=== PATIENT | male | born 1965 | race Caucasian/White ===

== ENCOUNTER → 2018-09-17 | Outpatient (CLI) | payer MEDICARE ==
[2015-02-09 22:47] VITALS: BP 122/71
--- NOTE | 2018-09-17 11:18 | KCIC ---
CHEST PA LATERAL Clinical indications: Bronchitis. Shortness of air. Cough. Past smoker. COMPARISON: July 28, 2013. Findings: No acute lung infiltrate or pleural effusion or pulmonary edema or lung mass or pneumothorax is seen. The heart size, pulmonary vasculature, mediastinum and both oneil are unremarkable. The osseous structures appear intact. Impression: No acute radiographic abnormality is seen. Electronically signed by: Say Peace MD (09/17/2018 11:14 AM) [facility]
== END | disposition home or self-care (01) ==
LOC: KCIC 10:45
PROVIDERS: ATTEND Family Medicine
DX: J40 Bronchitis, not specified as acute or chronic (principal); Z87.891 Personal history of nicotine dependence
CPT/HCPCS: 71046

== ENCOUNTER → 2018-12-09 | Outpatient (CLI) | payer MEDICARE ==
[2015-02-09 22:47] VITALS: BP 122/71
[~2018-12-09] MED LIST: ZOLPIDEM 5 MG TABLET. PO ONE
--- NOTE | 2018-12-15 19:06 | SLEEP ---
DATE OF STUDY: 12/09/2018 ATTENDING PHYSICIAN: Dr. Travon Echevarria. The patient is 53 years old who weighs 208 pounds with a BMI of 33. The patient's [place] score was 14. The patient had a history of sleep apnea in 2011 and needed to requalify for another CPAP. During the night study, the patient spent 433 minutes in bed and slept for 292 minutes with a sleep efficiency of 67%. Sleep latency was 42 minutes with a REM latency of 254 minutes. Overall, sleep architecture showed increased stage 1 and stage 2 sleep, normal N3 sleep and reduced REM sleep. During the initial diagnostic portion of the study, the patient slept for 63 minutes. The patient had 75 hypopneas, 3 obstructive apneas, 16 mixed apneas and no central apneas. The patient's AHI was 90 per hour. Supine or REM sleep was not seen during the diagnostic portion. EKG monitoring revealed normal sinus rhythm. Occasional PACs seen. Average heart rate 102 beats per minute. No arrhythmias seen. The patient's average oxygen saturation during the diagnostic portion was 92% with lowest of 79% and 81% of time, oxygen saturation remained between 80% and 89% PLMs were seen at index of 49 per hour and 10 per hour caused EEG arousals. The patient met the criteria for CPAP initiation. It was started at 5 cm water and titrated up to 18 cm water. At the final pressure, the patient slept for 49 minutes. The patient had supine sleep, but no REM sleep. The patient's AHI was reduced to 0 per hour and oxygen saturation remained above 88%. The patient used a medium size full face mask. IMPRESSION: 1. Severe sleep apnea hypopnea syndrome at an AHI of 90 per hour. 2. Nocturnal hypoxia secondary to obstructive sleep apnea, but resolved with CPAP. 3. Severe periodic limb movements. RECOMMENDATIONS: 1. CPAP at 18 cm water completely eliminated the patient's sleep apnea, should be used on a nightly basis. 2. Follow up in 4-6 weeks to assess compliance with CPAP and to document clinical improvement. 3. Weight loss is strongly advised. 4. Avoid [employer] depressants. 5. Caution regarding driving until symptoms of sleep apnea resolves with the use of CPAP. 6. PLMs can be treated with dopaminergic agonist agents if the patient is clinically symptomatic. The patient should also be further evaluated for symptoms of restless legs during the day. MARTINEZ GONZALEZ MD DR: KAJAL/danica JOB#: [id number] / [id number] TRAVON Amaya MD MTDD
== END | disposition home or self-care (01) ==
LOC: SLPLAB 18:50
PROVIDERS: ATTEND Family Medicine
DX: G47.33 Obstructive sleep apnea (adult) (pediatric) (principal); G47.34 Idiopathic sleep related nonobstructive alveolar hypoventilation; G47.61 Periodic limb movement disorder
CPT/HCPCS: 95810

== ENCOUNTER 2021-05-13 08:57 | Observation (INO) | payer MEDICARE ==
[~2021-05-13] VITALS: Ht 167.6 cm; Wt 93.1 kg
[2021-05-13 10:57] LABS: BASO % 0 % (0-3); EOS % 0 % (0-3); HEMATOCRIT 35.7 % (39.0-53.0); HEMOGLOBIN 12.2 g/dL (13.0-17.5); LYMPH % 6 % (24-48); MEAN CORPUSCULAR HEMOGLOBIN 31 pg (25-35); MEAN CORPUSCULAR HGB CONC 34 g/dL (31-37); MEAN CORPUSCULAR VOLUME 92 fL (79-100); MONO # 1.6 x10^3/uL (0.0-1.1); MONO % 10 % (0-9); NEUT # 13.6 x10^3/uL (1.8-7.7); NEUT % 84 % (31-73); PLATELET COUNT 297 x10^3/uL (140-400); RED BLOOD COUNT 3.89 x10^6/uL (4.30-5.70); RED CELL DISTRIBUTION WIDTH 13.1 % (11.5-14.5); WHITE BLOOD COUNT 16.3 x10^3/uL (4.0-11.0)
[2021-05-13] MEDS ORDERED: IV NORMAL SALINE 1000ML BAG 1,000 ML IV ONE (11:00)
[2021-05-13 11:08] LABS: CALCIUM 8.8 mg/dL (8.5-10.1); CREATININE 1.5 mg/dL (0.7-1.3); GFR 48.6; POTASSIUM 4.1 mmol/L (3.5-5.1)
--- NOTE | 2021-05-13 11:08 | RAD ---
XR CHEST 1V History: Weakness Comparison: 09/17/2018 Technique: Portable AP radiograph of the chest. Findings: Lungs are adequately and symmetrically inflated. Eventration of the diaphragm bilaterally. No focal a irspace consolidation, pleural effusion or pneumothorax. The cardiomediastinal silhouette and pulmona ry vasculature are within normal limits. Osseous structures and soft tissues are unremarkable. Impression: 1. No acute cardiopulmonary process. Electronically signed by: Kamar Coulter MD (05/13/2021 11:05 AM) [id number]
[2021-05-13 11:13] LABS: ALBUMIN 2.6 g/dL (3.4-5.0); ALBUMIN/GLOBULIN RATIO 0.6 (1.0-1.7); MAGNESIUM 2.7 mg/dL (1.8-2.4); TOTAL BILIRUBIN 0.3 mg/dL (0.2-1.0); TOTAL PROTEIN 7.3 g/dL (6.4-8.2)
[2021-05-13 11:28] LABS: % BANDS 5 % (0-9); % LYMPHS 12 % (24-48); % MONOS 8 % (0-10); % SEGS 75 % (35-66); PLT ESTIMATE ADEQUATE (ADEQUATE)
[2021-05-13 11:53] LABS: BILIRUBIN,URINE SMALL (NEG); CLARITY,URINE CLEAR; COLOR,URINE YELLOW; NITRITE,URINE NEGATIVE (NEG); PH,URINE 5.5 (<5.0-8.0); PROTEIN,URINE 100 mg/dL (NEG-TRACE)
[2021-05-13 12:02] LABS: BARBITURATES NEG (NEG); BENZODIAZEPINES NEG (NEG); CANNABINOIDS POS (NEG); COCAINE NEG (NEG); METHADONE NEG (NEG); OPIATES POS (NEG); PHENCYCLIDINE NEG (NEG)
[2021-05-13 12:04] LABS: AMPHETAMINE/METHAMPHETAMINE NEG (NEG)
[2021-05-13 12:10] LABS: HYALINE CASTS, URINE MANY /HPF
[2021-05-13 12:11] LABS: GRANULAR CASTS,URINE FEW /HPF
[2021-05-13 12:12] LABS: BACTERIA,URINE FEW /HPF (0-FEW); RBC,URINE 0 /HPF (0-2); WBC,URINE OCC /HPF (0-4)
--- NOTE | 2021-05-13 12:34 | PHYS DOC ---
Past Medical History Past Medical History: Diabetes-Type II, High Cholesterol, Hypertension, Hyperthyroid Past Surgical History: Appendectomy, Other Additional Past Surgical Histo: bilateral eye repair,L ARM SURG Smoking Status: Never Smoker Alcohol Use: None Drug Use: Marijuana General Adult EDM: Chief Complaint: WEAKNESS/GENERALIZED HPI: HPI: Patient is a 55 year old male with history of diabetes type 2, hypertension, high cholesterol, who presents today complaining of generalized weakness and hyperglycemia. Patient states for the last couple months he has not been taking good care of himself. He states he has not been following his diabetic diet. He states he has not been taking his medicines as well. He for the last 4 days has been feeling weak. He states he got back on insulin after his friend who has diabetes told him he needs to be on insulin. He states he used to be on Metformin which he was not taking. He states his blood glucose at home has been running between 300 and 350. Review of Systems: Review of Systems: Constitutional: Reports generalized weakness. Denies fever or chills. [] Eyes: Denies change in visual acuity. [] HENT: Denies nasal congestion or sore throat. [] Respiratory: Denies cough or shortness of breath. [] Cardiovascular: Denies chest pain or edema. [] GI: Denies abdominal pain, nausea, vomiting, bloody stools or diarrhea. [] : Denies dysuria. [] Musculoskeletal: Denies back pain or joint pain. [] Integument: Denies rash. [] Neurologic: Denies headache, focal weakness or sensory changes. [] Endocrine: Reports hypoglycemia Psychiatric: Denies depression or anxiety. [] Heart Score: C/O Chest Pain: N/A Risk Factors: Risk Factors: DM, Current or recent (<one month) smoker, HTN, HLP, family history of CAD, obesity. Risk Scores: Score 0 - 3: 2.5% MACE over next 6 weeks - Discharge Home Score 4 - 6: 20.3% MACE over next 6 weeks - Admit for Clinical Observation Score 7 - 10: 72.7% MACE over next 6 weeks - Early Invasive Strategies Current Medications: Current Medications Medications (Trade) Dose Ordered Sig/Elliott Start Time Stop Time Status Last Admin Dose Admin Sodium Chloride 1,000 ml @ 1,000 mls/hr 1X ONCE 05/13/21 11:00 05/13/21 11:59 DC 05/13/21 11:39 1,000 MLS/HR Allergies: Allergies: Allergies Coded Allergies Type Severity Reaction Last Updated Verified No Known Drug Allergies 02/09/15 No Physical Exam: PE: Constitutional: Well developed, well nourished, no acute distress, non-toxic appearance. [] HENT: Normocephalic, atraumatic, bilateral external ears normal, oropharynx moist, no oral exudates, nose normal. [] Eyes: PERRLA, EOMI, conjunctiva normal, no discharge. [] Neck: Normal range of motion, no tenderness, supple, no stridor. [] Cardiovascular:Heart rate regular rhythm, no murmur [] Lungs & Thorax: Bilateral breath sounds clear to auscultation [] Abdomen: Bowel sounds normal, soft, no tenderness, no masses, no pulsatile masses. [] Skin: Warm, dry, no erythema, no rash. [] Back: No tenderness, no CVA tenderness. [] Extremities: No tenderness, no cyanosis, no clubbing, ROM intact, no edema. [] Neurologic: Alert and oriented X 3, normal motor function, normal sensory function, no focal deficits noted. [] Psychologic: Affect normal, judgement normal, mood normal. [] Current Patient Data: Labs: Laboratory Tests Test 05/13/21 10:07 05/13/21 10:17 05/13/21 11:25 Glucose (Fingerstick) 277 mg/dL (70-99) H White Blood Count 16.3 x10^3/uL (4.0-11.0) H Red Blood Count 3.89 x10^6/uL (4.30-5.70) L Hemoglobin 12.2 g/dL (13.0-17.5) L Hematocrit 35.7 % (39.0-53.0) L Mean Corpuscular Volume 92 fL (79-100) Mean Corpuscular Hemoglobin 31 pg (25-35) Mean Corpuscular Hemoglobin Concent 34 g/dL (31-37) Red Cell Distribution Width 13.1 % (11.5-14.5) Platelet Count 297 x10^3/uL (140-400) Neutrophils (%) (Auto) 84 % (31-73) H Lymphocytes (%) (Auto) 6 % (24-48) L Monocytes (%) (Auto) 10 % (0-9) H Eosinophils (%) (Auto) 0 % (0-3) Basophils (%) (Auto) 0 % (0-3) Neutrophils # (Auto) 13.6 x10^3/uL (1.8-7.7) H Lymphocytes # (Auto) 1.0 x10^3/uL (1.0-4.8) Monocytes # (Auto) 1.6 x10^3/uL (0.0-1.1) H Eosinophils # (Auto) 0.0 x10^3/uL (0.0-0.7) Basophils # (Auto) 0.0 x10^3/uL (0.0-0.2) Segmented Neutrophils % 75 % (35-66) H Band Neutrophils % 5 % (0-9) Lymphocytes % 12 % (24-48) L Monocytes % 8 % (0-10) Platelet Estimate Adequate (ADEQUATE) Sodium Level 129 mmol/L (136-145) L Potassium Level 4.1 mmol/L (3.5-5.1) Chloride Level 91 mmol/L (98-107) L Carbon Dioxide Level 24 mmol/L (21-32) Anion Gap 14 (6-14) Blood Urea Nitrogen 44 mg/dL (8-26) H Creatinine 1.5 mg/dL (0.7-1.3) H Estimated GFR (Cockcroft-Gault) 48.6 BUN/Creatinine Ratio 29 (6-20) H Glucose Level 277 mg/dL (70-99) H Calcium Level 8.8 mg/dL (8.5-10.1) Magnesium Level 2.7 mg/dL (1.8-2.4) H Total Bilirubin 0.3 mg/dL (0.2-1.0) Aspartate Amino Transferase (AST) 19 U/L (15-37) Alanine Aminotransferase (ALT) 19 U/L (16-63) Alkaline Phosphatase 122 U/L (46-116) H Troponin I Quantitative < 0.017 ng/mL (0.000-0.055) HK-Vqq-C-Type Natriuretic Peptide 182 pg/mL (0-124) H Total Protein 7.3 g/dL (6.4-8.2) Albumin 2.6 g/dL (3.4-5.0) L Albumin/Globulin Ratio 0.6 (1.0-1.7) L Urine Collection Type Unknown Urine Color Yellow Urine Clarity Clear Urine pH 5.5 (<5.0-8.0) Urine Specific [place] 1.020 (1.000-1.030) Urine Protein 100 mg/dL (NEG-TRACE) Urine Glucose (UA) 250 mg/dL (NEG) Urine Ketones (Stick) 15 mg/dL (NEG) Urine Blood Negative (NEG) Urine Nitrite Negative (NEG) Urine Bilirubin Small (NEG) Urine Urobilinogen Dipstick 1.0 mg/dL (0.2 mg/dL) Urine Leukocyte Esterase Negative (NEG) Urine RBC 0 /HPF (0-2) Urine WBC Occ /HPF (0-4) Urine Bacteria Few /HPF (0-FEW) Urine Hyaline Casts Many /HPF Urine Granular Casts Few /HPF Urine Mucus Mod /LPF Urine Opiates Screen Pos (NEG) Urine Methadone Screen Neg (NEG) Urine Barbiturates Neg (NEG) Urine Phencyclidine Screen Neg (NEG) Urine Amphetamine/Methamphetamine Neg (NEG) Urine Benzodiazepines Screen Neg (NEG) Urine Cocaine Screen Neg (NEG) Urine Cannabinoids Screen Pos (NEG) Urine Ethyl Alcohol Neg (NEG) Laboratory Tests 05/13/21 10:17 Laboratory Tests 05/13/21 10:17 Vital Signs: Vital Signs Date Time Temp Pulse Resp B/P (MAP) Pulse Ox O2 Delivery O2 Flow Rate FiO2 05/13/21 11:18 92 18 164/93 (116) 97 Room Air 05/13/21 10:00 98.7 98.7 EKG: EK interpreted by Dr. Sanchez sinus rhythm heart rate 99 no STEMI [] Radiology/Procedures: Radiology/Procedures: []PROCEDURE: PORTABLE CHEST 1V XR CHEST 1V History: Weakness Comparison: 09/17/2018 Technique: Portable AP radiograph of the chest. Findings: Lungs are adequately and symmetrically inflated. Eventration of the diaphragm bilaterally. No focal airspace consolidation, pleural effusion or pneumothorax. The cardiomediastinal silhouette and pulmonary vasculature are within normal limits. Osseous structures and soft tissues are unremarkable. Impression: 1. No acute cardiopulmonary process. Electronically signed by: Kamar Burgos MD (05/13/2021 11:05 AM) [id number] DICTATED and SIGNED BY: KAMAR BURGOS MD DATE: 05/13/21 [id number] Course & Med Decision Making: Course & Med Decision Making Pertinent Labs and Imaging studies reviewed. (See chart for details) This is a 55-year-old male patient with history of diabetes type 2 presented today complaining of hyperglycemia and generalized weakness. See HPI. CBC with a WBC of 16.3, hemoglobin 12.2 with hematocrit of 35.7. Creatinine 1.5 with BUN of 44. Glucose 277, sodium 129 corrected for glucose to 133. IV fluids started. Insulin ordered. Spoke with Dr. Sims who accepted patient for admission Dragon Disclaimer: Jareth Disclaimer: This electronic medical record was generated, in whole or in part, using a voice recognition dictation system. Departure Departure Impression: Primary Impression: Hyperglycemia Additional Impressions: Generalized weakness Acute renal failure Qualified Codes: N17.9 - Acute kidney failure, unspecified Disposition: ADMITTED INPATIENT Condition: STABLE Referrals: GALILEO CHENG (PCP) BELLE DUQUE APPLICATION DEVELOPMENT LIAISON May 13, 2021 12:34
--- NOTE | 2021-05-13 13:28 | PDOC1 ---
History and Physical Date of Admission Date of Admission DATE: 05/13/21 TIME: 13:16 Identification/Chief Complaint Chief Complaint Weakness, dehydration Source Source: Chart review, Patient History of Present Illness History of Present Illness Patient is a 55-year-old male with past medical history DM2, HTN, history of MRSA, who presents to the ED with complaints of weakness of the past 4 to 5 days. In the ED he had difficulty ambulating requiring wheelchair. 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 He has been using his friend's insulin in the interim. He also admits that he has not been taking good care of himself and his blood sugars have been significantly elevated at home. Labs on admission showed WBC 16.3, sodium 129, creatinine 1.5, hemoglobin 12.2, hematocrit 35.7, CBG 277, albumin 2.6. UDS is also positive for opiates and cannabis. In the ED he was given 1 L of fluids. Will admit for further medical management. Past Medical History Past Medical History DM2, HTN, history MRSA Past Surgical History Past Surgical History Appendectomy Family History Family History: Hypertension Social History Smoke: No ALCOHOL: none Drugs: Marijuana Current Problem List Problem List Problems Medical Problems: (1) Acute renal failure Status: Acute (2) Generalized weakness Status: Acute (3) Hyperglycemia Status: Acute Current Medications Current Medications Current Medications Sodium Chloride 1,000 ml @ 1,000 mls/hr 1X ONCE IV Last administered on 05/13/21at 11:39; Start 05/13/21 at 11:00; Stop 05/13/21 at 11:59; Status DC Allergies Allergies: Coded Allergies: No Known Drug Allergies (Unverified , 02/09/15) ROS Review of System GENERAL: Weakness. Denies history of weight change or fever. SKIN: No bruising, hair changes or rashes. EYES: No blurred, double or loss of vision. NOSE AND THROAT: No history of nosebleeds, hoarseness or sore throat. HEART: Denies chest pain, denies palpitations. LUNGS: Denies cough, hemoptysis, wheezing or shortness of breath. GASTROINTESTINAL: Denies nausea, vomiting, abdominal pain. GENITOURINARY: Denies dysuria, frequency, urgency, hematuria. NEUROLOGIC: Denies history of numbness, tingling, tremor or weakness. PSYCHIATRIC: Denies anxiety, denies depression. ENDOCRINE: No history of heat or cold intolerance, polyuria or polydipsia. EXTREMITIES: Denies muscle weakness, joint pain, pain on walking or stiffness. Physical Exam Physical Exam General: Alert, Oriented X3, Cooperative, No acute distress HEENT: PERRLA, EOMI Lungs: Clear to auscultation, Normal air movement Heart: RRR, no murmurs Cardiovascular: S1, S2 Abdomen: Normal bowel sounds, Soft, No tenderness Extremities: No clubbing, No cyanosis Skin: No rashes, No significant lesion. Well-healed postsurgical scar to left arm. Neuro: Normal speech, Normal tone, Sensation intact Psych/Mental Status: Mental status NL, Mood NL Vitals Vitals Vital Signs Date Time Temp Pulse Resp B/P (MAP) Pulse Ox O2 Delivery O2 Flow Rate FiO2 05/13/21 11:18 92 18 164/93 (116) 97 Room Air 05/13/21 10:00 98.7 98.7 Labs Labs Laboratory Tests Test 05/13/21 10:07 05/13/21 10:17 05/13/21 11:25 Glucose (Fingerstick) 277 mg/dL (70-99) White Blood Count 16.3 x10^3/uL (4.0-11.0) Red Blood Count 3.89 x10^6/uL (4.30-5.70) Hemoglobin 12.2 g/dL (13.0-17.5) Hematocrit 35.7 % (39.0-53.0) Mean Corpuscular Volume 92 fL (79-100) Mean Corpuscular Hemoglobin 31 pg (25-35) Mean Corpuscular Hemoglobin Concent 34 g/dL (31-37) Red Cell Distribution Width 13.1 % (11.5-14.5) Platelet Count 297 x10^3/uL (140-400) Neutrophils (%) (Auto) 84 % (31-73) Lymphocytes (%) (Auto) 6 % (24-48) Monocytes (%) (Auto) 10 % (0-9) Eosinophils (%) (Auto) 0 % (0-3) Basophils (%) (Auto) 0 % (0-3) Neutrophils # (Auto) 13.6 x10^3/uL (1.8-7.7) Lymphocytes # (Auto) 1.0 x10^3/uL (1.0-4.8) Monocytes # (Auto) 1.6 x10^3/uL (0.0-1.1) Eosinophils # (Auto) 0.0 x10^3/uL (0.0-0.7) Basophils # (Auto) 0.0 x10^3/uL (0.0-0.2) Segmented Neutrophils % 75 % (35-66) Band Neutrophils % 5 % (0-9) Lymphocytes % 12 % (24-48) Monocytes % 8 % (0-10) Platelet Estimate Adequate (ADEQUATE) Sodium Level 129 mmol/L (136-145) Potassium Level 4.1 mmol/L (3.5-5.1) Chloride Level 91 mmol/L (98-107) Carbon Dioxide Level 24 mmol/L (21-32) Anion Gap 14 (6-14) Blood Urea Nitrogen 44 mg/dL (8-26) Creatinine 1.5 mg/dL (0.7-1.3) Estimated GFR (Cockcroft-Gault) 48.6 BUN/Creatinine Ratio 29 (6-20) Glucose Level 277 mg/dL (70-99) Calcium Level 8.8 mg/dL (8.5-10.1) Magnesium Level 2.7 mg/dL (1.8-2.4) Total Bilirubin 0.3 mg/dL (0.2-1.0) Aspartate Amino Transf (AST/SGOT) 19 U/L (15-37) Alanine Aminotransferase (ALT/SGPT) 19 U/L (16-63) Alkaline Phosphatase 122 U/L (46-116) Troponin I Quantitative < 0.017 ng/mL (0.000-0.055) EI-Lox-U-Type Natriuretic Peptide 182 pg/mL (0-124) Total Protein 7.3 g/dL (6.4-8.2) Albumin 2.6 g/dL (3.4-5.0) Albumin/Globulin Ratio 0.6 (1.0-1.7) Urine Collection Type Unknown Urine Color Yellow Urine Clarity Clear Urine pH 5.5 (<5.0-8.0) Urine Specific [place] 1.020 (1.000-1.030) Urine Protein 100 mg/dL (NEG-TRACE) Urine Glucose (UA) 250 mg/dL (NEG) Urine Ketones (Stick) 15 mg/dL (NEG) Urine Blood Negative (NEG) Urine Nitrite Negative (NEG) Urine Bilirubin Small (NEG) Urine Urobilinogen Dipstick 1.0 mg/dL (0.2 mg/dL) Urine Leukocyte Esterase Negative (NEG) Urine RBC 0 /HPF (0-2) Urine WBC Occ /HPF (0-4) Urine Bacteria Few /HPF (0-FEW) Urine Hyaline Casts Many /HPF Urine Granular Casts Few /HPF Urine Mucus Mod /LPF Urine Opiates Screen Pos (NEG) Urine Methadone Screen Neg (NEG) Urine Barbiturates Neg (NEG) Urine Phencyclidine Screen Neg (NEG) Urine Amphetamine/Methamphetamine Neg (NEG) Urine Benzodiazepines Screen Neg (NEG) Urine Cocaine Screen Neg (NEG) Urine Cannabinoids Screen Pos (NEG) Urine Ethyl Alcohol Neg (NEG) Laboratory Tests Test 05/13/21 10:07 05/13/21 10:17 05/13/21 11:25 Glucose (Fingerstick) 277 mg/dL (70-99) White Blood Count 16.3 x10^3/uL (4.0-11.0) Red Blood Count 3.89 x10^6/uL (4.30-5.70) Hemoglobin 12.2 g/dL (13.0-17.5) Hematocrit 35.7 % (39.0-53.0) Mean Corpuscular Volume 92 fL (79-100) Mean Corpuscular Hemoglobin 31 pg (25-35) Mean Corpuscular Hemoglobin Concent 34 g/dL (31-37) Red Cell Distribution Width 13.1 % (11.5-14.5) Platelet Count 297 x10^3/uL (140-400) Neutrophils (%) (Auto) 84 % (31-73) Lymphocytes (%) (Auto) 6 % (24-48) Monocytes (%) (Auto) 10 % (0-9) Eosinophils (%) (Auto) 0 % (0-3) Basophils (%) (Auto) 0 % (0-3) Neutrophils # (Auto) 13.6 x10^3/uL (1.8-7.7) Lymphocytes # (Auto) 1.0 x10^3/uL (1.0-4.8) Monocytes # (Auto) 1.6 x10^3/uL (0.0-1.1) Eosinophils # (Auto) 0.0 x10^3/uL (0.0-0.7) Basophils # (Auto) 0.0 x10^3/uL (0.0-0.2) Segmented Neutrophils % 75 % (35-66) Band Neutrophils % 5 % (0-9) Lymphocytes % 12 % (24-48) Monocytes % 8 % (0-10) Platelet Estimate Adequate (ADEQUATE) Sodium Level 129 mmol/L (136-145) Potassium Level 4.1 mmol/L (3.5-5.1) Chloride Level 91 mmol/L (98-107) Carbon Dioxide Level 24 mmol/L (21-32) Anion Gap 14 (6-14) Blood Urea Nitrogen 44 mg/dL (8-26) Creatinine 1.5 mg/dL (0.7-1.3) Estimated GFR (Cockcroft-Gault) 48.6 BUN/Creatinine Ratio 29 (6-20) Glucose Level 277 mg/dL (70-99) Calcium Level 8.8 mg/dL (8.5-10.1) Magnesium Level 2.7 mg/dL (1.8-2.4) Total Bilirubin 0.3 mg/dL (0.2-1.0) Aspartate Amino Transf (AST/SGOT) 19 U/L (15-37) Alanine Aminotransferase (ALT/SGPT) 19 U/L (16-63) Alkaline Phosphatase 122 U/L (46-116) Troponin I Quantitative < 0.017 ng/mL (0.000-0.055) AL-Bzd-J-Type Natriuretic Peptide 182 pg/mL (0-124) Total Protein 7.3 g/dL (6.4-8.2) Albumin 2.6 g/dL (3.4-5.0) Albumin/Globulin Ratio 0.6 (1.0-1.7) Urine Collection Type Unknown Urine Color Yellow Urine Clarity Clear Urine pH 5.5 (<5.0-8.0) Urine Specific [place] 1.020 (1.000-1.030) Urine Protein 100 mg/dL (NEG-TRACE) Urine Glucose (UA) 250 mg/dL (NEG) Urine Ketones (Stick) 15 mg/dL (NEG) Urine Blood Negative (NEG) Urine Nitrite Negative (NEG) Urine Bilirubin Small (NEG) Urine Urobilinogen Dipstick 1.0 mg/dL (0.2 mg/dL) Urine Leukocyte Esterase Negative (NEG) Urine RBC 0 /HPF (0-2) Urine WBC Occ /HPF (0-4) Urine Bacteria Few /HPF (0-FEW) Urine Hyaline Casts Many /HPF Urine Granular Casts Few /HPF Urine Mucus Mod /LPF Urine Opiates Screen Pos (NEG) Urine Methadone Screen Neg (NEG) Urine Barbiturates Neg (NEG) Urine Phencyclidine Screen Neg (NEG) Urine Amphetamine/Methamphetamine Neg (NEG) Urine Benzodiazepines Screen Neg (NEG) Urine Cocaine Screen Neg (NEG) Urine Cannabinoids Screen Pos (NEG) Urine Ethyl Alcohol Neg (NEG) Images Images PATIENT: LOGAN PEREZ EACCOUNT: [id number] : 1965 LOCATION: ER AGE: 55 SEX: M EXAM STATUS: PRE ER ORD. PHYSICIAN: BELLE DUQUE APRN REASON: weakness PROCEDURE: PORTABLE CHEST 1V XR CHEST 1V History: Weakness Comparison: 09/17/2018 Technique: Portable AP radiograph of the chest. Findings: Lungs are adequately and symmetrically inflated. Eventration of the diaphragm bilaterally. No focal airspace consolidation, pleural effusion or pneumothorax. The cardiomediastinal silhouette and pulmonary vasculature are within normal limits. Osseous structures and soft tissues are unremarkable. Impression: 1. No acute cardiopulmonary process. 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 Resume home medications FEN - ADA diet PPX - Lovenox FULL CODE Dispo - inpatient for above Patient names his sister (Ninfa Coulter) as surrogate decision-maker Justifications for Admission Other Justification TRISTA RAMACHANDRAN MD May 13, 2021 13:28
[2021-05-13] MEDS ORDERED: IV DEXTROSE 5% 250 ML BAG. IV PRN (13:30)
[2021-05-13] MEDS ORDERED: DEXTROSE 50% 25 GM / 50ML DISP.SYRIN. IV PRN (13:30)
[2021-05-13] MEDS ORDERED: IV NORMAL SALINE 1000ML BAG 1,000 ML IV PRN (13:30)
[2021-05-13] MEDS ORDERED: ONDANSETRON PF 4 MG/2 ML VIAL. IVP PRN (14:00)
[2021-05-13] MEDS ORDERED: MAG HYDROX/ALUMINUM HYD/SIMETH 30 ML ORAL.SUSP PO PRN (14:00)
[2021-05-13] MEDS ORDERED: HYDROcodone/APAP 5/325MG 1 TAB TABLET PO PRN (14:00)
[2021-05-13] MEDS ORDERED: ZOLPIDEM 5 MG TABLET. PO PRN (14:00)
[2021-05-13] MEDS ORDERED: ACETAMINOPHEN 325 MG TABLET. PO PRN (14:00)
[2021-05-13] MEDS ORDERED: MAGNESIUM HYDROXIDE 2,400 MG/30 ML ORAL.SUSP. PO PRN (14:00)
[2021-05-13] MEDS ORDERED: CALCIUM CARBONATE 500 MG TAB.CHEW PO PRN (14:00)
[2021-05-13] MEDS ORDERED: ENOXAPARIN 40 MG/0.4 ML SYRINGE. SQ SCH (16:00)
[2021-05-13] MEDS: INSULIN LISPRO 300 UNITS/3 ML VIAL. SQ SCH (19:43)
[2021-05-13 20:33] VITALS: BP 168/90
[2021-05-13] MEDS ORDERED: INSULIN GLARGINE SYRINGE. SQ SCH (21:00)
[2021-05-13] MEDS ORDERED: HYDROcodone/APAP 10/325 1 TAB TABLET PO PRN (23:00)
[2021-05-13] MEDS ORDERED: LISI20TA18 PO (23:09)
[2021-05-13] MEDS ORDERED: ESCI10TA90 PO (23:09)
[2021-05-13] MEDS ORDERED: QUET100T2 PO (23:09)
[2021-05-13] MEDS ORDERED: GABA-585 PO (23:09)
[2021-05-13] MEDS ORDERED: CARV25TA2 PO (23:09)
[2021-05-13] MEDS ORDERED: METF10007 PO (23:09)
[2021-05-13] MEDS ORDERED: HYDR-2769 PO (23:09)
[2021-05-13] MEDS ORDERED: PIOG45TA40 PO (23:09)
[2021-05-13] MEDS ORDERED: QUEtiapine 100 MG TABLET. PO SCH (23:30)
[2021-05-13] MEDS: CARVEDILOL 12.5 MG TABLET. PO SCH (23:37)
[2021-05-13] MEDS: LISINOPRIL 20 MG TABLET PO SCH (23:38)
[2021-05-13] MEDS: CITALOPRAM 20 MG TABLET. PO SCH (23:38)
[2021-05-13 23:59] VITALS: BP 123/80
--- NOTE | 2021-05-14 03:49 | EKG ---
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
[2021-05-14 03:57] VITALS: BP 126/84
[2021-05-14 06:00] LABS: BASO % 0 % (0-3); EOS # 0.1 x10^3/uL (0.0-0.7); EOS % 1 % (0-3); HEMATOCRIT 32.9 % (39.0-53.0); HEMOGLOBIN 11.2 g/dL (13.0-17.5); LYMPH # 1.1 x10^3/uL (1.0-4.8); LYMPH % 11 % (24-48); MEAN CORPUSCULAR HEMOGLOBIN 31 pg (25-35); MEAN CORPUSCULAR HGB CONC 34 g/dL (31-37); MEAN CORPUSCULAR VOLUME 92 fL (79-100); MONO # 1.2 x10^3/uL (0.0-1.1); MONO % 11 % (0-9); NEUT # 8.1 x10^3/uL (1.8-7.7); NEUT % 77 % (31-73); PLATELET COUNT 273 x10^3/uL (140-400); RED BLOOD COUNT 3.58 x10^6/uL (4.30-5.70); RED CELL DISTRIBUTION WIDTH 13.2 % (11.5-14.5); WHITE BLOOD COUNT 10.5 x10^3/uL (4.0-11.0)
[2021-05-14 06:05] LABS: CALCIUM 8.1 mg/dL (8.5-10.1); CREATININE 1.3 mg/dL (0.7-1.3); GFR 57.3; POTASSIUM 3.6 mmol/L (3.5-5.1)
[2021-05-14 07:45] VITALS: BP 137/85
[2021-05-14] MEDS: CITALOPRAM 20 MG TABLET. PO SCH (08:26)
[2021-05-14] MEDS: LISINOPRIL 20 MG TABLET PO SCH (08:27)
[2021-05-14] MEDS: CARVEDILOL 12.5 MG TABLET. PO SCH (08:28)
[2021-05-14] MEDS: INSULIN LISPRO 300 UNITS/3 ML VIAL. SQ SCH ×2 (08:35→11:54)
[2021-05-14 10:57] VITALS: BP 147/87
[2021-05-14] MEDS ORDERED: INSU100V8 SQ (13:29)
--- NOTE | 2021-05-14 13:52 | PDOC ---
[facility] [facility] PROGRESS NOTE Date of Service DOS: DATE: 05/14/21 TIME: 13:47 Chief Complaint Chief Complaint Hyperglycemia Dehydration History of Present Illness History of Present Illness 05/14/2021 Pt seen and examined Pt was cooperative and in NAD Pt seemed comfortable and was sitting up D/W RN Chart reviewed PMHx included necrotizing fascitis on left arm 05/13 Patient is a 55-year-old male with past medical history DM2, HTN, history of MRSA, who presents to the ED with complaints of weakness of the past 4 to 5 days. In the ED he had difficulty ambulating requiring wheelchair. 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 He has been using his friend's insulin in the interim. He also admits that he has not been taking good care of himself and his blood sugars have been significantly elevated at home. Labs on admission showed WBC 16.3, sodium 129, creatinine 1.5, hemoglobin 12.2, hematocrit 35.7, CBG 277, albumin 2.6. UDS is also positive for opiates and cannabis. In the ED he was given 1 L of fluids. Will admit for further medical management. Vitals/I&O Vitals/I&O: Vital Signs Date Time Temp Pulse Resp B/P (MAP) Pulse Ox O2 Delivery O2 Flow Rate FiO2 05/14/21 10:57 98.4 80 20 147/87 (107) 94 Room Air 98.4 I & O 05/13/21 05/13/21 05/14/21 15:00 23:00 07:00 Intake Total 1000 ml 660 ml Output Total 300 ml 500 ml Balance 1000 ml -300 ml 160 ml Physical Exam General: Alert, Oriented X3, Cooperative Heart: Regular rate, Normal S1 Lungs: Clear Abdomen: Normal bowel sounds Extremities: No clubbing, No cyanosis Skin: No rashes, Other Labs Labs: Laboratory Tests Test 05/13/21 13:55 05/13/21 16:15 05/13/21 16:56 05/13/21 21:25 Troponin I Quantitative < 0.017 ng/mL (0.000-0.055) SARS-CoV-2 RNA (ARELY) Negative (Negative) SARS-CoV-2 Antigen (Rapid) Negative (NEGATIVE) Glucose (Fingerstick) 295 mg/dL (70-99) 276 mg/dL (70-99) Test 05/14/21 05:30 05/14/21 08:21 05/14/21 11:05 White Blood Count 10.5 x10^3/uL (4.0-11.0) Red Blood Count 3.58 x10^6/uL (4.30-5.70) Hemoglobin 11.2 g/dL (13.0-17.5) Hematocrit 32.9 % (39.0-53.0) Mean Corpuscular Volume 92 fL (79-100) Mean Corpuscular Hemoglobin 31 pg (25-35) Mean Corpuscular Hemoglobin Concent 34 g/dL (31-37) Red Cell Distribution Width 13.2 % (11.5-14.5) Platelet Count 273 x10^3/uL (140-400) Neutrophils (%) (Auto) 77 % (31-73) Lymphocytes (%) (Auto) 11 % (24-48) Monocytes (%) (Auto) 11 % (0-9) Eosinophils (%) (Auto) 1 % (0-3) Basophils (%) (Auto) 0 % (0-3) Neutrophils # (Auto) 8.1 x10^3/uL (1.8-7.7) Lymphocytes # (Auto) 1.1 x10^3/uL (1.0-4.8) Monocytes # (Auto) 1.2 x10^3/uL (0.0-1.1) Eosinophils # (Auto) 0.1 x10^3/uL (0.0-0.7) Basophils # (Auto) 0.0 x10^3/uL (0.0-0.2) Sodium Level 133 mmol/L (136-145) Potassium Level 3.6 mmol/L (3.5-5.1) Chloride Level 98 mmol/L (98-107) Carbon Dioxide Level 24 mmol/L (21-32) Anion Gap 11 (6-14) Blood Urea Nitrogen 40 mg/dL (8-26) Creatinine 1.3 mg/dL (0.7-1.3) Estimated GFR (Cockcroft-Gault) 57.3 Glucose Level 327 mg/dL (70-99) Calcium Level 8.1 mg/dL (8.5-10.1) Troponin I Quantitative < 0.017 ng/mL (0.000-0.055) Glucose (Fingerstick) 312 mg/dL (70-99) 283 mg/dL (70-99) Review of Systems Review of Systems: Pt denies chest pain Pt denies N/V Assessment and Plan Assessmemt and Plan 05/14/2021 Assessment: Dehydration Hyperglycemia Plan: Probable D/C this afternoon Continue Home Rx DVT prophylaxis Problems Medical Problems: (1) Acute renal failure Status: Acute (2) Generalized weakness Status: Acute (3) Hyperglycemia Status: Acute Comment Review of Relevant I have reviewed the following items alli (where applicable) has been applied. Medications: Current Medications Medications (Trade) Dose Ordered Sig/Elliott Route PRN Reason Start Time Stop Time Status Last Admin Dose Admin Insulin Glargine (Lantus Syringe) 18 unit QHS SQ 05/13/21 21:00 05/13/21 23:39 Insulin Human Lispro (HumaLOG) 0-9 UNITS TIDWMEALS SQ 05/13/21 17:00 05/14/21 11:54 Zolpidem Tartrate (Ambien) 5 mg PRN QHS PRN PO INSOMNIA, MAY REPEAT IN 1HR 05/13/21 14:00 05/13/21 23:39 Acetaminophen (Tylenol) 650 mg PRN Q6HRS PRN PO Headaches, Temp > 101.5F 05/13/21 14:00 05/13/21 23:38 Enoxaparin Sodium (Lovenox 40mg Syringe) 40 mg Q24H SQ 05/13/21 16:00 05/13/21 19:36 Acetaminophen/ Hydrocodone Bitart (Lortab 10/325) 1 tab PRN Q6HRS PRN PO PAIN 05/13/21 23:00 05/13/21 23:38 Lisinopril (Prinivil) 20 mg DAILY PO 05/13/21 23:30 05/14/21 08:27 Quetiapine Fumarate (SEROquel) 100 mg HS PO 05/13/21 23:30 05/13/21 23:37 Carvedilol (Coreg) 25 mg BIDWMEALS PO 05/13/21 23:30 05/14/21 08:28 Citalopram Hydrobromide (CeleXA) 20 mg DAILY PO 05/13/21 23:30 05/14/21 08:26 Justifications for Admission Other Justification DMITRI HEART III DO May 14, 2021 13:52
[2021-05-14 14:12] VITALS: BP 113/77
--- NOTE | 2021-05-14 15:42 | DS ---
DATE OF DISCHARGE: 05/14/2021 ADMISSION DIAGNOSES: Hyperglycemia, acute kidney injury, dehydration and hyponatremia. DISCHARGE DIAGNOSES: Resolving hyperglycemia, resolving acute kidney injury, dehydration, hyponatremia. CONSULTS: None. PROCEDURES: None. HOSPITAL COURSE: The patient is a pleasant middle-aged male who presented with dehydration, hyperglycemia and acute kidney injury. We gave the patient fluids, did some cardiac monitoring, trended his labs. We initiated some insulin 18 units a day. Today, I saw him and examined. He is at his baseline and wants to go home. We plan to discharge to home. DISPOSITION: Home. ACTIVITY: As tolerated. DIET: Low sodium. MEDICATIONS: Please see the MRAD. OTHER MEDICATIONS: Glargine insulin 18 units at bedtime, carvedilol 25 b.i.d., p.r.n. hydrocodone 10 mg q. 6, lisinopril 20 a day, metformin 1000 b.i.d., Actos 45 a day and quetiapine 100 at bedtime. TOTAL TIME: Thirty-one minutes. [address]: Bob TID: [id number]
== END 2021-05-14 14:45 | disposition home or self-care (01) ==
LOC: ER 08:57 → INTOOBSV 11:50 → ED HOLD 11:50 → 5 SOUTH 16:57
PROVIDERS: ADMIT Family Medicine; ATTEND Family Medicine
DX: N17.0 Acute kidney failure with tubular necrosis (principal); E11.65 Type 2 diabetes mellitus with hyperglycemia; E87.1 Hypo-osmolality and hyponatremia; E86.0 Dehydration; D64.9 Anemia, unspecified; Z20.822 Contact with and (suspected) exposure to COVID-19; E43 Unspecified severe protein-calorie malnutrition; E78.00 Pure hypercholesterolemia, unspecified; I10 Essential (primary) hypertension; Q79.1 Other congenital malformations of diaphragm; Z79.4 Long term (current) use of insulin; Z86.14 Personal history of Methicillin resistant Staphylococcus aureus infection; Z90.49 Acquired absence of other specified parts of digestive tract; Z91.14 Patient's other noncompliance with medication regimen; Z79.899 Other long term (current) drug therapy
CPT/HCPCS: 36415; 71045; 80048; 80053; 80307; 81001; 82962; 83036; 83735; 83880; 84484; 85007; 85025; 87426; 93005; 96360; 96361; 96372; 99285; G0378; J1650; J1815; J7030; U0003; U0005; 96374; G0379